=== PATIENT | male | born 1945 | race Caucasian/White ===

== ENCOUNTER 2017-02-08 08:00 | Outpatient (CLI) | payer MEDICARE, BC ==
[2017-02-08 18:21] LABS: CALCIUM 9.8 mg/dL (8.5-10.3); CREATININE 1.2 mg/dL (0.6-1.2); MAGNESIUM 2.1 mg/dL (1.7-2.8); POTASSIUM 3.9 mmol/L (3.5-5.0)
== END 2017-02-08 08:01 ==
LOC: LAB.F 08:00
PROVIDERS: ATTEND Registered Nurse
DX: E87.8 Other disorders of electrolyte and fluid balance, not elsewhere classified (principal)
CPT/HCPCS: 36415; 80048; 83735; 84100

== ENCOUNTER 2018-03-13 04:11 | Outpatient (CLI) | payer MEDICARE, BC | END 2018-03-13 04:12 | disposition critical access hospital (66) | LOC: EMS 04:11 | PROVIDERS: ATTEND Surgery | DX: R55 Syncope and collapse (principal); R42 Dizziness and giddiness | CPT/HCPCS: A0425; A0429 ==

== ENCOUNTER 2018-03-13 04:48 | Emergency (ER) | payer MEDICARE, BC ==
[2018-03-13] MEDS ORDERED: SODIUM CHLORIDE 0.9% 1,000 ML IV ONE ×2 (04:54→05:55)
--- NOTE | 2018-03-13 04:58 | ED Physician Documentation ---
PD HPI SYNCOPE - Stated complaint Stated Complaint: SYNCOPE, HYPOTENSION - Chief complaint Chief Complaint: Neuro - History obtained from History obtained from: Patient, Family, EMS - History of Present Illness Witnessed: Unwitnessed ( heard a thud and the found him awake on the floor) Timing - onset: How many hours ago (1) Duration: Seconds Preceding symptoms: Light headed, Other (nausea, no vomiting, was on his knees over the toilet in the bathroom) Associated symptoms: No: Incontinant of urine, Incontinant of stool, Headache, Vision changes, Chest pain, Palpitations, Diaphoresis, Dyspnea, Abdominal pain Contributing factors: Other (nausea. low BP with EMS. SBP 90/50. refused IV en route) Injury occurred: None. No: Head injury, Neck injury, Bit tongue Pain level max: 0 Pain level now: 0 Similar symptoms before: Diagnosis (states has passed out several times in the past, vasovagal sounds familiar to him.) Recently seen: Not recently seen Review of Systems Ten Systems: 10 systems reviewed and negative Constitutional: denies: Fever, Chills Throat: denies: Sore throat Cardiac: denies: Chest pain / pressure Respiratory: denies: Cough GI: reports: Nausea (felt nauseated after drinking psyllium). denies: Abdominal Pain, Vomiting, Diarrhea : denies: Dysuria Skin: denies: Rash Musculoskeletal: denies: Neck pain, Back pain Neurologic: denies: Headache PD PAST MEDICAL HISTORY - Past Medical History Past Medical History: Yes Other Past Medical History: parkinsons - Present Medications Home Medications: Ambulatory Orders Medication Instructions Recorded Confirmed Carbidopa/Levodopa [Rytary ER 1 each PO 03/13/18 36.25 mg-145 mg Cap] Potassium Citrate [Potassium 10 meq PO 03/13/18 Citrate ER] Rasagiline Mesylate [Azilect] 03/13/18 03/13/18 Tamsulosin [Flomax] 03/13/18 buPROPion [Wellbutrin Sr] 150 mg PO BID 03/13/18 03/13/18 - Allergies Allergies/Adverse Reactions: Allergies Allergy/AdvReac Type Severity Reaction Status Date / Time No Known Drug Allergies Allergy Verified 03/13/18 04:55 - Living Situation Living Situation: reports: With family Living Arrangement: reports: At home - Social History Does the pt smoke?: No Does the pt have substance abuse?: No - Family History Family history: reports: Non contributory PD ED PE NORMAL - Vitals Vital signs reviewed: Yes - General General: Alert and oriented X 3, No acute distress - HEENT HEENT: PERRL, Other (dry lips and tongue) - Neck Neck: Supple, no meningeal sign - Cardiac Cardiac: RRR, Strong equal pulses - Respiratory Respiratory: No respiratory distress, Clear bilaterally - Abdomen Abdomen: Soft, Non tender, Non distended - Derm Derm: Warm and dry, No rash - Extremities Extremities: No edema - Neuro Neuro: Alert and oriented X 3 - Psych Psych: Normal mood, Normal affect Results - Vitals Vitals: Vital Signs - 24 hr 03/13/18 03/13/18 03/13/18 04:48 05:39 05:54 Temperature 36.4 C L Heart Rate 75 62 74 Respiratory 12 18 Rate Blood Pressure 90/67 98/61 98/62 O2 Saturation 100 98 98 03/13/18 06:42 Temperature Heart Rate 75 Respiratory 17 Rate Blood Pressure 96/51 L O2 Saturation 99 Oxygen O2 Source Room air - EKG (time done) 0456 Rate: Rate (enter#) (72) Rhythm: NSR [place]: Normal Intervals: Normal [place] QRS: Normal Ischemia: Normal ST segments - Labs Labs: Laboratory Tests 03/13/18 03/13/18 03/13/18 05:00 05:00 05:00 WBC 9.9 RBC 4.20 L Hgb 14.9 Hct 43.5 MCV 103.5 H MCH 35.4 H MCHC 34.2 RDW 12.5 Plt Count 330 MPV 6.9 L Neut # (Auto) 7.9 H Lymph # (Auto) 1.1 L [place] # (Auto) 0.7 Eos # (Auto) 0.1 Baso # (Auto) 0.1 Absolute Nucleated RBC 0.01 Nucleated RBC % 0.1 Sodium 136 Potassium 4.3 Chloride 100 L Carbon Dioxide 29 Anion Gap 7.0 BUN 19 Creatinine 1.1 Estimated GFR (MDRD) 66 L Glucose 101 H Calcium 10.1 Total Bilirubin 1.0 AST 21 ALT < 10 L Alkaline Phosphatase 49 Troponin I < 0.04 Total Protein 7.3 Albumin 4.2 Globulin 3.1 Albumin/Globulin Ratio 1.4 Lipase 28 - Rads (name of study) cxr Radiology: Prelim report reviewed, EMP read contemporaneously, See rad report (Mild bibasilar atelectasis or infiltrate) PD MEDICAL DECISION MAKING - ED course Complexity details: reviewed results, re-evaluated patient, considered differential (No ST elevation MS, no aortic dissection, no PE, no tension pneumothorax, no aortic aneurysm), d/w patient, d/w family ED course: Patient is a 72-year-old male who presents to the emergency with what appears to be vasovagal syncope today. He is well-appearing, nontoxic. Found to be hypotensive originally. Responded well to IV fluids. No acute findings on laboratory testing to explain his symptoms. Chest x-ray with mild bibasilar atelectasis, clinical picture does not support pneumonia. No acute findings on telemetry or EKG. Awaiting UA and repeat check of BP. Patient signed out to oncoming ED physician. This document was made in part using voice recognition software. While efforts are made to proofread this document, sound alike and grammatical errors may occur. Departure - Departure Clinical Impression: Vasovagal syncope, Dehydration Hypotension Qualifiers: Hypotension type: unspecified hypotension type Qualified Code(s): I95.9 - Hypotension, unspecified Condition: Stable Comments:
[2018-03-13 05:23] LABS: BASOPHILS # (AUTO) 0.1 10^3/uL (0.0-0.1); BASOPHILS % (AUTO) 1.2 %; EOSINOPHILS # (AUTO) 0.1 10^3/uL (0.0-0.7); EOSINOPHILS % (AUTO) 0.9 %; HGB - HEMOGLOBIN 14.9 g/dL (14.0-18.0); LYMPHOCYTES # (AUTO) 1.1 10^3/uL (1.5-3.5); LYMPHOCYTES % (AUTO) 10.8 %; MEAN CORPUSCULAR HEMOGLOBIN 35.4 pg (27.0-31.0); MEAN CORPUSCULAR HGB CONC 34.2 g/dL (32.0-36.0); MEAN CORPUSCULAR VOLUME 103.5 fL (80.0-94.0); MEAN PLATELET VOLUME 6.9 fL (7.4-11.4); MONOCYTES # (AUTO) 0.7 10^3/uL (0.0-1.0); MONOCYTES % (AUTO) 7.2 %; NEUTROPHILS # (AUTO) 7.9 10^3/uL (1.5-6.6); NEUTROPHILS % (AUTO) 79.9 %; PLT - PLATELET COUNT 330 10^3/uL (130-450); RED CELL DISTRIBUTION WIDTH 12.5 % (12.0-15.0); WHITE BLOOD COUNT 9.9 x10^3/uL (4.8-10.8)
--- NOTE | 2018-03-13 05:25 | XRAY Report ---
Reason: syncope Procedure Date: 03/13/2018 Accession Number: [id number] / [id number] Procedure: XR - Chest 1 View X-Ray CPT Code: 73008 FULL RESULT: EXAM: CHEST RADIOGRAPHY EXAM DATE: 03/13/2018 05:17 AM. CLINICAL HISTORY: Syncope. COMPARISON: None. TECHNIQUE: 1 view. FINDINGS: Lungs/Pleura: Mild bibasilar atelectasis or infiltrate. No pleural effusion seen. No pneumothorax. Mediastinum: Within exam limitations, the cardiomediastinal contour is normal. Other: None. IMPRESSION: 1. Mild bibasilar atelectasis or infiltrate. RADIA
[2018-03-13 05:30] LABS: ALBUMIN 4.2 g/dL (3.2-5.5); ALBUMIN/GLOBULIN RATIO 1.4 (1.0-2.2); ALKALINE PHOSPHATASE 49 IU/L (42-121); ALT ALANINE AMINOTRANSFERASE < 10 IU/L (10-60); AST ASPARTATE AMINOTRANSFERASE 21 IU/L (10-42); BUN - BLOOD UREA NITROGEN 19 mg/dL (6-20); CALCIUM 10.1 mg/dL (8.5-10.3); CARBON DIOXIDE - CO2 29 mmol/L (21-32); CHLORIDE 100 mmol/L (101-111); CREATININE 1.1 mg/dL (0.6-1.2); GFR - MDRD 66 (>89); GLUCOSE 101 mg/dL (70-100); LIPASE 28 U/L (22-51); SODIUM 136 mmol/L (135-145); TOTAL PROTEIN 7.3 g/dL (6.7-8.2)
[2018-03-13] MEDS ORDERED: LACTATED RINGERS 1,000 ML IV STA (07:08)
[2018-03-13 07:49] LABS: BILIRUBIN,URINE NEGATIVE (NEGATIVE); GLUCOSE, URINE (UA) NEGATIVE (NEGATIVE); KETONES,URINE (UA) NEGATIVE (NEGATIVE); LEUKOCYTE ESTERASE, URINE NEGATIVE (NEGATIVE); NITRITE,URINE NEGATIVE (NEGATIVE); OCCULT BLOOD,URINE NEGATIVE (NEGATIVE); PROTEIN,URINE NEGATIVE (NEGATIVE); UROBILINOGEN,URINE 0.2 (NORMAL) E.U./dL (NORMAL)
[2018-03-13 07:53] LABS: CLARITY,URINE CLEAR (CLEAR)
[2018-03-13 08:06] VITALS: BP 125/71
--- NOTE | 2018-03-13 08:06 | ED Physician Documentation ---
ED Addendum - Addendum Addendum: 03/13/18 08:05 72-year-old gentleman with Parkinson's and out to me by Dr. Nagel. He had a syncopal episode this morning. He was hypotensive in route. After a few liters of fluids his blood pressure normalized. Lab work reviewed, basically unremarkable. On sign out urinalysis was pending which is also unremarkable. He was feeling much better and was asymptomatic. Orthostatics were checked and without significant change with position change and he requested discharge.
== END 2018-03-13 08:20 | disposition home or self-care (01) ==
LOC: EDUNIT# → ED 04:48
DX: R55 Syncope and collapse (principal); E86.0 Dehydration; I95.9 Hypotension, unspecified; G20 Parkinson's disease
CPT/HCPCS: 36415; 71045; 80053; 81003; 83690; 84484; 85025; 93005; 96360; 96361; 99284; 99285; J7120; 81001; 87086

== ENCOUNTER 2018-03-26 01:18 | Outpatient (CLI) | payer MEDICARE, BC | END 2018-03-26 01:19 | disposition critical access hospital (66) | LOC: EMS 01:18 | PROVIDERS: ATTEND Surgery | DX: R55 Syncope and collapse (principal); R03.1 Nonspecific low blood-pressure reading; R42 Dizziness and giddiness; R11.0 Nausea | CPT/HCPCS: A0425; A0427 ==

== ENCOUNTER 2018-03-26 01:59 | Emergency (ER) | payer MEDICARE, BC ==
--- NOTE | 2018-03-26 03:07 | ED Physician Documentation ---
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 patient has had a dry cough for the past two days. patient had a flu shot two days ago. At midnight tonight, patient was lying in bed and had sudden onset of nausea. he went to the bathroom because he felt he was going to vomit. Because he had similar symptoms two weeks ago that resulted in syncope, patients followed him to the bathroom out of concern that he might pass out again. As patient was leaning forward over the toilet with nausea and about to vomit, patient did have a syncopal episode. helped him to ground, patient did not fall nor sustain an injury. patient recovered within less than one minute, but when he tried to stand up, he had second episode of syncope with lots of consciousness for less than one minute. He rides in emergency department via ambulance asymptomatic. Review of Systems Constitutional: reports: Reviewed and negative Eyes: reports: Reviewed and negative Cardiac: reports: Reviewed and negative Respiratory: reports: Reviewed and negative GI: reports: Nausea. denies: Abdominal Pain : denies: Dysuria, Frequency Musculoskeletal: reports: Reviewed and negative Neurologic: reports: Syncope, LOC. denies: Generalized weakness, Focal weakness, Numbness, Headache PD PAST MEDICAL HISTORY - Past Medical History Past Medical History: Yes Respiratory: Pneumonia Neuro: Parkinson's : Kidney stones - Past Surgical History Past Surgical History: Yes General: Hiatal hernia repair - Present Medications Home Medications: Ambulatory Orders Medication Instructions Recorded Confirmed Carbidopa/Levodopa [Rytary ER 1 each PO 03/13/18 36.25 mg-145 mg Cap] Potassium Citrate [Potassium 540 mg PO QID 03/13/18 Citrate ER] Rasagiline Mesylate [Azilect] 1 mg PO DAILY 03/13/18 03/13/18 Tamsulosin [Flomax] 1 cap PO DAILY 03/13/18 buPROPion [Wellbutrin Sr] 100 mg PO BID 03/13/18 03/13/18 Sildenafil Citrate 100 mg PO 03/26/18 - Allergies Allergies/Adverse Reactions: Allergies Allergy/AdvReac Type Severity Reaction Status Date / Time No Known Drug Allergies Allergy Verified 03/26/18 02:02 - Social History Does the pt smoke?: No Smoking Status: Never smoker Does the pt drink ETOH?: Yes Does the pt have substance abuse?: No Substance Use and Type: Marijuana - Immunizations Immunizations are current?: Yes - POLST Patient has POLST: No PD ED PE NORMAL - Vitals Vital signs reviewed: Yes - General General: Alert and oriented X 3, No acute distress, Well developed/nourished - HEENT HEENT: Atraumatic, PERRL, EOMI, Moist mucous membranes - Neck Neck: Supple, no meningeal sign, No bony TTP - Cardiac Cardiac: RRR, No murmur - Respiratory Respiratory: No respiratory distress, Clear bilaterally - Abdomen Abdomen: Soft, Non tender - Derm Derm: Normal color, Warm and dry - Neuro Neuro: Alert and oriented X 3, 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, No motor deficit, No sensory deficit, Normal speech Eye Opening: Spontaneous Motor: Obeys Commands Verbal: Oriented GCS Score: 15 Results - Vitals Vitals: Vital Signs - 24 hr 03/26/18 03/26/18 03/26/18 01:56 02:50 03:45 Temperature 36.5 C Heart Rate 96 67 80 Respiratory 18 15 17 Rate Blood Pressure 100/64 94/56 L 105/59 L O2 Saturation 95 95 96 03/26/18 04:29 Temperature Heart Rate 77 Respiratory 16 Rate Blood Pressure 110/80 O2 Saturation 96 Oxygen O2 Source Room air - EKG (time done) No standard instances Rate: Rate (enter#) (71) Rhythm: NSR [place]: Normal Intervals: Normal IN QRS: Normal Ischemia: Normal ST segments - Labs Labs: Laboratory Tests 03/26/18 03/26/18 03/26/18 03:35 03:35 03:35 WBC 11.4 H RBC 3.70 L Hgb 13.3 L Hct 38.3 L MCV 103.4 H MCH 35.9 H MCHC 34.7 RDW 12.3 Plt Count 277 MPV 6.7 L Neut # (Auto) 9.5 H Lymph # (Auto) 1.1 L [place] # (Auto) 0.6 Eos # (Auto) 0.1 Baso # (Auto) 0.0 Absolute Nucleated RBC 0.00 Nucleated RBC % 0.0 Sodium 136 Potassium 3.7 Chloride 103 Carbon Dioxide 26 Anion Gap 7.0 BUN 17 Creatinine 0.9 Estimated GFR (MDRD) 83 L Glucose 115 H Lactic Acid Calcium 8.3 L Troponin I < 0.04 Urine Color Urine Clarity Urine pH Ur Specific [place] Urine Protein Urine Glucose (UA) Urine Ketones Urine Occult Blood Urine Nitrite Urine Bilirubin Urine Urobilinogen Ur Leukocyte Esterase Ur Microscopic Review Urine Culture Comments 03/26/18 03/26/18 03:35 03:39 WBC RBC Hgb Hct MCV MCH MCHC RDW Plt Count MPV Neut # (Auto) Lymph # (Auto) [place] # (Auto) Eos # (Auto) Baso # (Auto) Absolute Nucleated RBC Nucleated RBC % Sodium Potassium Chloride Carbon Dioxide Anion Gap BUN Creatinine Estimated GFR (MDRD) Glucose Lactic Acid 1.4 Calcium Troponin I Urine Color YELLOW Urine Clarity CLEAR Urine pH 6.5 Ur Specific [place] 1.010 Urine Protein NEGATIVE Urine Glucose (UA) NEGATIVE Urine Ketones NEGATIVE Urine Occult Blood NEGATIVE Urine Nitrite NEGATIVE Urine Bilirubin NEGATIVE Urine Urobilinogen 0.2 (NORMAL) Ur Leukocyte Esterase NEGATIVE Ur Microscopic Review NOT INDICATED Urine Culture Comments NOT INDICATED PD MEDICAL DECISION MAKING - ED course Complexity details: reviewed results, re-evaluated patient, considered differential, d/w patient, d/w family Departure - Departure Disposition: 01 Home, Self Care Clinical Impression: Syncope Condition: Good Instructions: ED Fainting Unkn Cause Comments: Follow up with your primary care provider, next available appointment Discharge Date/Time: 03/26/18 04:51
[2018-03-26] MEDS ORDERED: SODIUM CHLORIDE 0.9% 1,000 ML IV STA ×2 (03:28→03:29)
[2018-03-26 03:50] LABS: BILIRUBIN,URINE NEGATIVE (NEGATIVE); GLUCOSE, URINE (UA) NEGATIVE (NEGATIVE); KETONES,URINE (UA) NEGATIVE (NEGATIVE); LEUKOCYTE ESTERASE, URINE NEGATIVE (NEGATIVE); NITRITE,URINE NEGATIVE (NEGATIVE); OCCULT BLOOD,URINE NEGATIVE (NEGATIVE); PH,URINE 6.5 PH (5.0-7.5); PROTEIN,URINE NEGATIVE (NEGATIVE); UROBILINOGEN,URINE 0.2 (NORMAL) E.U./dL (NORMAL)
[2018-03-26 03:51] LABS: BASOPHILS % (AUTO) 0.3 %; EOSINOPHILS # (AUTO) 0.1 10^3/uL (0.0-0.7); HGB - HEMOGLOBIN 13.3 g/dL (14.0-18.0); LYMPHOCYTES # (AUTO) 1.1 10^3/uL (1.5-3.5); LYMPHOCYTES % (AUTO) 9.5 %; MEAN CORPUSCULAR HEMOGLOBIN 35.9 pg (27.0-31.0); MEAN CORPUSCULAR HGB CONC 34.7 g/dL (32.0-36.0); MEAN CORPUSCULAR VOLUME 103.4 fL (80.0-94.0); MEAN PLATELET VOLUME 6.7 fL (7.4-11.4); MONOCYTES # (AUTO) 0.6 10^3/uL (0.0-1.0); MONOCYTES % (AUTO) 5.4 %; NEUTROPHILS # (AUTO) 9.5 10^3/uL (1.5-6.6); NEUTROPHILS % (AUTO) 83.8 %; PLT - PLATELET COUNT 277 10^3/uL (130-450); RED CELL DISTRIBUTION WIDTH 12.3 % (12.0-15.0); WHITE BLOOD COUNT 11.4 x10^3/uL (4.8-10.8)
[2018-03-26 03:55] LABS: CLARITY,URINE CLEAR (CLEAR)
[2018-03-26 03:59] LABS: CALCIUM 8.3 mg/dL (8.5-10.3); CREATININE 0.9 mg/dL (0.6-1.2)
[2018-03-26 04:30] VITALS: BP 110/80
== END 2018-03-26 04:51 | disposition home or self-care (01) ==
LOC: EDUNIT# → ED 01:59
DX: R55 Syncope and collapse (principal); G20 Parkinson's disease
CPT/HCPCS: 36415; 80048; 81001; 81003; 83605; 84484; 85025; 87086; 93005; 96360; 96361; 99284

== ENCOUNTER 2021-01-06 23:00 | Outpatient (CLI) | payer MEDICARE, BC | END 2021-01-06 23:01 | disposition critical access hospital (66) | LOC: EMS 23:00 | DX: R11.10 Vomiting, unspecified (principal) | CPT/HCPCS: A0425; A0427 ==

== ENCOUNTER 2021-01-06 23:36 | Emergency (ER) | payer MEDICARE, BC ==
[2021-01-06] MEDS ORDERED: ONDANSETRON 4 MG/2 ML VIAL IVP STA (23:51)
[2021-01-06] MEDS ORDERED: SODIUM CHLORIDE 0.9% 1,000 ML IV STA (23:51)
--- NOTE | 2021-01-07 00:07 | ED Physician Documentation ---
PD HPI NVD - Stated complaint Stated Complaint: VOMITING - Chief complaint Chief Complaint: Abd Pain - History obtained from History obtained from: Patient - History of Present Illness Timing - onset: Enter time (18:00), Today Timing - details: Abrupt onset Pain level max: 0 Pain level now: 0 Associated symptoms: No: Fever, Abdominal pain, Hematemesis Improved by: Other (no amelorating factors) Worsened by: Other (no exacerbating factors) Similar symptoms before: Has not had sx before - Additonal information Additional information: patient presents c/o nausea and vomiting since 6 PM today. Denies abdominal pain, denies fever. He ate mushrooms 2 days ago which he says were psilocybin and which he ate for hallucinogenic affect. He says he did have a trip (per patient) as expected after eating these mushrooms, which he obtained from someone else. Review of Systems Constitutional: reports: Reviewed and negative Cardiac: reports: Reviewed and negative Respiratory: reports: Reviewed and negative GI: reports: Nausea, Vomiting. denies: Abdominal Pain, Constipation, Diarrhea, Hematemesis, Bloody / black stool PD PAST MEDICAL HISTORY - Past Medical History Past Medical History: Yes Respiratory: Pneumonia Neuro: Parkinson's : Kidney stones - Past Surgical History Past Surgical History: Yes General: Hiatal hernia repair - Present Medications Home Medications: Ambulatory Orders Medication Instructions Recorded Confirmed Carbidopa/Levodopa [Rytary ER 1 each PO DAILY 03/13/18 01/06/21 36.25 mg-145 mg Cap] Potassium Citrate [Potassium 540 mg PO QID 03/13/18 01/06/21 Citrate ER] Rasagiline Mesylate [Azilect] 1 mg PO DAILY 03/13/18 01/06/21 Tamsulosin [Flomax] 1 cap PO DAILY 03/13/18 01/06/21 buPROPion [Wellbutrin Sr] 100 mg PO BID 03/13/18 01/06/21 Sildenafil Citrate 100 mg PO DAILY 03/26/18 01/06/21 Promethazine [Phenergan] 25 mg PO Q6H PRN #10 tab 01/07/21 - Allergies Allergies/Adverse Reactions: Allergies Allergy/AdvReac Type Severity Reaction Status Date / Time No Known Drug Allergies Allergy Verified 01/06/21 23:42 - Social History Does the pt smoke?: No Smoking Status: Never smoker Does the pt drink ETOH?: Yes Does the pt have substance abuse?: No - Immunizations Immunizations are current?: Yes - POLST Patient has POLST: No PD ED PE NORMAL - Vitals Vital signs reviewed: Yes - General General: Alert and oriented X 3, No acute distress, Well developed/nourished - HEENT HEENT: PERRL, EOMI - Cardiac Cardiac: RRR - Respiratory Respiratory: No respiratory distress, Clear bilaterally - Abdomen Abdomen: Normal bowel sounds, Soft, Non tender, Non distended - Derm Derm: Normal color, Warm and dry Results - Vitals Vitals: Oxygen O2 Source Room air - Labs Labs: Microbiology 01/07/21 01:25 Urine Culture - Preliminary Urine,Clean Catch CULTURE IN PROGRESS. RESULTS TO FOLLOW. Laboratory Tests 01/06/21 01/06/21 01/07/21 00:25 00:25 00:25 WBC 15.6 H RBC 4.16 L Hgb 14.7 Hct 44.0 MCV 105.8 H MCH 35.3 H MCHC 33.4 RDW 11.9 L Plt Count 279 MPV 8.6 Neut # (Auto) 14.7 H Lymph # (Auto) 0.2 L [place] # (Auto) 0.5 Eos # (Auto) 0.0 Baso # (Auto) 0.0 Absolute Nucleated RBC 0.00 Nucleated RBC % 0.0 PT 10.9 INR 1.0 APTT 26.8 Sodium 135 Potassium 4.0 Chloride 102 Carbon Dioxide 24 Anion Gap 9.0 BUN 26 H Creatinine 0.9 Estimated GFR (MDRD) 83 L Glucose 140 H Calcium 8.7 Total Bilirubin 1.1 H AST 21 ALT < 10 L Alkaline Phosphatase 48 Total Protein 6.6 L Albumin 3.9 Globulin 2.7 Albumin/Globulin Ratio 1.4 Urine Color Urine Clarity Urine pH Ur Specific [place] Urine Protein Urine Glucose (UA) Urine Ketones Urine Occult Blood Urine Nitrite Urine Bilirubin Urine Urobilinogen Ur Leukocyte Esterase Urine RBC Urine WBC Ur Squamous Epith Cells Urine Bacteria Ur Microscopic Review Urine Culture Comments 01/07/21 01:25 WBC RBC Hgb Hct MCV MCH MCHC RDW Plt Count MPV Neut # (Auto) Lymph # (Auto) [place] # (Auto) Eos # (Auto) Baso # (Auto) Absolute Nucleated RBC Nucleated RBC % PT INR APTT Sodium Potassium Chloride Carbon Dioxide Anion Gap BUN Creatinine Estimated GFR (MDRD) Glucose Calcium Total Bilirubin AST ALT Alkaline Phosphatase Total Protein Albumin Globulin Albumin/Globulin Ratio Urine Color YELLOW Urine Clarity CLEAR Urine pH 7.0 Ur Specific [place] 1.015 Urine Protein NEGATIVE Urine Glucose (UA) NEGATIVE Urine Ketones TRACE Urine Occult Blood NEGATIVE Urine Nitrite NEGATIVE Urine Bilirubin NEGATIVE Urine Urobilinogen 0.2 (NORMAL) Ur Leukocyte Esterase TRACE H Urine RBC 0-5 Urine WBC 0-3 Ur Squamous Epith Cells FEW Squamous Urine Bacteria Few Ur Microscopic Review INDICATED Urine Culture Comments INDICATED PD MEDICAL DECISION MAKING - ED course Complexity details: reviewed results, re-evaluated patient, considered differential, d/w patient ED course: presents to ED via EMS c/o nausea and vomiting 2 days after eating mushrooms which gave him hallucinations (desired effect, per patient; hallucinations have resolved). He is nontender on abdominal exam and NAD between episodes of vomiting. Mild leukocytosis (15.6 wbc), and bun/creatinine ration suggest dehydration (26/0.9). His LFTs are mostly unremarkable with minimally elevated bilirubin (1.1) but normal transaminases. He is given total of 2 liters NS, 8mg zofran (4mg given by EMS), and 25mg phenergan; these interventions resulted in resolution of his n/v. Poison control was contacted and they say that patient is safe and appropriate for d/c home given reassuring labs (specifically normal creatinine and transaminases). Departure - Departure Disposition: 01 Home, Self Care Clinical Impression: Dehydration Vomiting Qualifiers: Vomiting type: associated with bulimia nervosa Nausea presence: with nausea Qualified Code(s): F50.2 - Bulimia nervosa Condition: Good Instructions: ED Nausea Vomiting Prescriptions: Promethazine [Phenergan] 25 mg PO Q6H PRN #10 tab PRN Reason: Nausea / Vomiting Comments: Follow up with your primary care provider in 2-3 days for reevaluation if symptoms have not completely resolved Discharge Date/Time: 01/07/21 03:54
[2021-01-07 00:34] LABS: BASOPHILS % (AUTO) 0.3 %; EOSINOPHILS % (AUTO) 0.1 %; HGB - HEMOGLOBIN 14.7 g/dL (14.0-18.0); LYMPHOCYTES # (AUTO) 0.2 10^3/uL (1.5-3.5); LYMPHOCYTES % (AUTO) 1.2 %; MEAN CORPUSCULAR HEMOGLOBIN 35.3 pg (27.0-31.0); MEAN CORPUSCULAR HGB CONC 33.4 g/dL (32.0-36.0); MEAN CORPUSCULAR VOLUME 105.8 fL (80.0-94.0); MEAN PLATELET VOLUME 8.6 fL (7.4-11.4); MONOCYTES # (AUTO) 0.5 10^3/uL (0.0-1.0); MONOCYTES % (AUTO) 3.3 %; NEUTROPHILS # (AUTO) 14.7 10^3/uL (1.5-6.6); NEUTROPHILS % (AUTO) 94.5 %; PLT - PLATELET COUNT 279 10^3/uL (130-450); RED BLOOD COUNT 4.16 10^6/uL (4.70-6.10); RED CELL DISTRIBUTION WIDTH 11.9 % (12.0-15.0); WHITE BLOOD COUNT 15.6 x10^3/uL (4.8-10.8)
[2021-01-07 00:41] LABS: PT - PROTHROMBIN TIME 10.9 secs (9.9-12.6)
[2021-01-07 00:47] LABS: ALBUMIN 3.9 g/dL (3.2-5.5); ALBUMIN/GLOBULIN RATIO 1.4 (1.0-2.2); ALKALINE PHOSPHATASE 48 IU/L (42-121); ALT ALANINE AMINOTRANSFERASE < 10 IU/L (10-60); AST ASPARTATE AMINOTRANSFERASE 21 IU/L (10-42); BILIRUBIN,TOTAL 1.1 mg/dL (0.2-1.0); BUN - BLOOD UREA NITROGEN 26 mg/dL (6-20); CALCIUM 8.7 mg/dL (8.5-10.3); CARBON DIOXIDE - CO2 24 mmol/L (21-32); CHLORIDE 102 mmol/L (101-111); CREATININE 0.9 mg/dL (0.6-1.2); GFR - MDRD 83 (>89); GLUCOSE 140 mg/dL (70-100); SODIUM 135 mmol/L (135-145); TOTAL PROTEIN 6.6 g/dL (6.7-8.2)
[2021-01-07 00:48] LABS: PARTIAL THROMBOPLASTIN TIME 26.8 secs (24.9-33.3)
[2021-01-07 01:31] LABS: BILIRUBIN,URINE NEGATIVE (NEGATIVE); GLUCOSE, URINE (UA) NEGATIVE (NEGATIVE); KETONES,URINE (UA) TRACE mg/dL (NEGATIVE); LEUKOCYTE ESTERASE, URINE TRACE (NEGATIVE); NITRITE,URINE NEGATIVE (NEGATIVE); OCCULT BLOOD,URINE NEGATIVE (NEGATIVE); PROTEIN,URINE NEGATIVE (NEGATIVE); UROBILINOGEN,URINE 0.2 (NORMAL) E.U./dL (NORMAL)
[2021-01-07 01:36] LABS: CLARITY,URINE CLEAR (CLEAR)
[2021-01-07] MEDS ORDERED: PROMETHAZINE INJ 25 MG in SODIUM CHLORIDE 0.9% 50 ML IV STA (01:40)
[2021-01-07 01:42] LABS: BACTERIA,URINE Few /HPF (None Seen); RBC,URINE 0-5 /HPF (0-5); SQUAMOUS EPITHELIAL CELL,UR FEW Squamous (<= Few); WBC,URINE 0-3 /HPF (0-3)
[2021-01-07] MEDS ORDERED: PROMETHAZINE 25 MG/1 ML VIAL ONE (01:47)
[2021-01-07] MEDS ORDERED: SODIUM CHLORIDE 0.9% 1,000 ML IV STA (02:27)
[2021-01-07 03:27] VITALS: BP 115/61
== END 2021-01-07 03:54 | disposition home or self-care (01) ==
LOC: EDUNIT# → ED 23:36
DX: E86.0 Dehydration (principal); F50.2 Bulimia nervosa; G20 Parkinson's disease
CPT/HCPCS: 36415; 80053; 81001; 85025; 85610; 85730; 87086; 96361; 96365; 96375; 99283; 99284; J7040; 81003; 83690

== ENCOUNTER 2022-07-13 08:00 | Outpatient (CLI) | payer MEDICARE ==
[2022-07-13 20:24] LABS: BILIRUBIN,URINE NEGATIVE (NEGATIVE); GLUCOSE, URINE (UA) NEGATIVE (NEGATIVE); KETONES,URINE (UA) NEGATIVE (NEGATIVE); LEUKOCYTE ESTERASE, URINE LARGE (NEGATIVE); NITRITE,URINE POSITIVE (NEGATIVE); OCCULT BLOOD,URINE NEGATIVE (NEGATIVE); PH,URINE 7.5 PH (5.0-7.5); PROTEIN,URINE NEGATIVE (NEGATIVE); UROBILINOGEN,URINE 0.2 (NORMAL) E.U./dL (NORMAL)
[2022-07-13 20:42] LABS: BACTERIA,URINE Moderate /HPF (None Seen); CLARITY,URINE CLEAR (CLEAR); MUCUS,URINE Few Strands; RBC,URINE 0-5 /HPF (0-5); SQUAMOUS EPITHELIAL CELL,UR RARE Squamous (<= Few); WBC,URINE >25 /HPF (0-3)
== END 2022-07-13 23:59 | disposition home or self-care (01) ==
LOC: LAB.S 08:00
PROVIDERS: ATTEND Emergency Medicine
DX: N39.0 Urinary tract infection, site not specified (principal)
CPT/HCPCS: 81001; 87077; 87086; 87181